=== PATIENT | female | born 1990 | race Caucasian/White ===

== ENCOUNTER → 2019-06-05 16:13 | Outpatient (CLI) | payer OTHER, MEDICAID, SELFPAY ==
--- NOTE | 2019-06-05 16:14 | DI.US.S_ITS ---
PROCEDURE: US ABDOMEN COMPLETE INDICATIONS: ABD PAIN, NAUSEA AND VOMITING X 2 WKS TECHNIQUE: Real-time scanning was performed of the abdominal and retroperitoneal organs, with image documentation. COMPARISON: None. FINDINGS: Liver: Liver is normal in size and homogeneous in echotexture. Gallbladder: Gallbladder is sonographically normal. No gallstones. No gallbladder wall thickening. No pericholecystic fluid. No sonographic Hamm sign. Biliary ducts: Intrahepatic bile ducts are non-dilated. Extrahepatic bile duct caliber measures 3.3 mm. Normal is 6-7 mm or less in diameter, or 10 mm or less post-cholecystectomy. Pancreas: Visualized portions of the pancreas are sonographically normal. Spleen: Spleen is normal in size and homogeneous in echotexture. Incidental note of a small splenule. Kidneys: Kidneys are normal in size and echotexture. Right kidney measures 10.8 cm long; left kidney measures 10.0 cm long. No hydronephrosis or nephrolithiasis. No solid masses. Aorta: Visualized aorta is normal in caliber at less than 3 cm. Iliacs: Proximal common iliac arteries are normal in caliber at less than 2.5 cm. IVC: Intrahepatic inferior vena cava is patent. Miscellaneous: No free abdominal fluid. IMPRESSION: Normal abdominal sonogram. Dictated by: Maria M Purvis MD, PhD on 06/05/2019 at 17:04 Approved by: Maria M Purvis MD, PhD on 06/05/2019 at 17:10
[2019-06-05 16:41] LABS: Add Manual Diff / Slide Review NO; Basophils Absolute Auto 0 /uL (0-100); Basophils Percent Auto 0.5 % (0-2); Eosinophils Absolute Auto 0 /uL (0-450); Eosinophils Percent Auto 0.2 % (2-4); Hematocrit 42.4 % (36-46); Hemoglobin 14.3 g/dL (12.0-16.0); Lymphocytes Absolute Auto 1600 /uL (1100-4500); Lymphocytes Percent Auto 22.5 % (25-40); Mean Corpuscular HGB Conc 33.6 % (30-36); Mean Corpuscular Hemoglobin 31.2 PG (26-34); Mean Corpuscular Volume 92.6 fL (80-100); Monocytes Absolute Auto 400 /uL (0-900); Neutrophils Absolute Auto 5000 /uL (1500-7000); Neutrophils Percent Auto 70.8 % (50-75); Platelet Count 205 X10^3/uL (150-400); Red Blood Cell Count 4.58 X10^6/uL (4.0-5.2); Red Cell Distribution Width 13.5 % (11.6-14.8); White Blood Cell Count 7.1 X10^3/uL (4.5-11.0)
[2019-06-05 17:01] LABS: Alanine Aminotransferase 25 IU/L (9-52); Albumin 4.6 g/dL (3.5-5.0); Albumin Globulin Ratio 1.5 (1.0-2.8); Alkaline Phosphatase 73 U/L (38-126); Aspartate Aminotransferase 28 IU/L (14-36); Bilirubin Total 0.7 mg/dL (0.2-1.3); Blood Urea Nitrogen 12 mg/dL (7-17); Calcium 9.6 mg/dL (8.4-10.2); Carbon Dioxide 27 mmol/L (22-32); Chloride 103 mmol/L (98-107); Estimated Glomerular Filt Rate > 60.0 mL/min (>60); Globulin 3.1 g/dL (1.7-4.1); Glucose 92 mg/dL (70-100); HEMOLYSIS 29 (0-50); Lipase 64 U/L (23-300); Potassium 4.8 mmol/L (3.4-5.1); Sodium 139 mmol/L (137-145); Total Protein 7.7 g/dL (6.3-8.2)
== END ==
PROVIDERS: Visit Provider Physician Assistant
DX: R10.9 Unspecified abdominal pain (principal); R11.2 Nausea with vomiting, unspecified
CPT/HCPCS: 36415; 76700; 80053; 83690; 85025

== ENCOUNTER → 2019-06-13 19:00 | Outpatient (CLI) | payer OTHER, MEDICAID, SELFPAY ==
--- NOTE | 2019-06-13 19:03 | DI.RAD.S_ITS ---
PROCEDURE: XR ANKLE RT MIN 3V INDICATIONS: Right foot pain TECHNIQUE: 3 views of the ankle were acquired. COMPARISON: [facility], , XR FOOT RT MIN 3V, 06/13/2019, 19:03. FINDINGS: Bones: No fractures or dislocations of the ankle. Ankle mortise is normally aligned. No suspicious bony lesions. Soft tissues: No tibiotalar joint effusion. Achilles tendon appears normal. IMPRESSION: No fracture dislocation of the right ankle. Please see separately dictated foot radiographs. Dictated by: Juice Huggins M.D. on 06/13/2019 at 20:48 Approved by: Juice Huggins M.D. on 06/13/2019 at 20:50
--- NOTE | 2019-06-13 19:03 | DI.RAD.S_ITS ---
PROCEDURE: XR FOOT RT MIN 3V INDICATIONS: Right foot pain TECHNIQUE: 3 views of the foot were acquired. COMPARISON: None. FINDINGS: Bones: Spiral fracture of the fifth metatarsal shaft with minimal displacement. Small ossicle adjacent to the lateral cuboid may represent additional fracture versus normal variant. Soft tissues: No tibiotalar joint effusion. Achilles tendon appears normal. IMPRESSION: Spiral fracture of the fifth metatarsal shaft with minimal displacement. Dictated by: Juice Huggins M.D. on 06/13/2019 at 20:50 Approved by: Juice Huggins M.D. on 06/13/2019 at 20:52
== END ==
PROVIDERS: Visit Provider Physician Assistant
DX: S92.351A Displaced fracture of fifth metatarsal bone, right foot, initial encounter for closed fracture (principal)
CPT/HCPCS: 73610; 73630

== ENCOUNTER 2020-05-02 09:09 | Emergency (ER) | payer OTHER, MEDICAID, SELFPAY ==
[2020-05-02 09:28] VITALS: BP 116/73; PULSE 87; RESP 14; TEMP 36.8; O2SAT 98; BMI 24.0
--- NOTE | 2020-05-02 09:32 | DI.RAD.S_ITS ---
PROCEDURE: XR ELBOW LT MIN 3V INDICATIONS: elbow injury 2 weeks ago,still having pain and swelling TECHNIQUE: 3 views of the elbow were acquired. COMPARISON: [facility], CR, XR ELBOW 3+ VIEWS LEFT, 04/15/2020, 17:03. FINDINGS: Bones: No fractures or dislocations. No suspicious bony lesions. Soft tissues: No elbow joint effusion. No suspicious soft tissue calcifications. IMPRESSION: A fracture is not found. Source of persistent pain after trauma 04/15/20 is not seen. Dictated by: Carlos Haywood M.D. on 05/02/2020 at 10:01 Approved by: Carlos Haywood M.D. on 05/02/2020 at 10:02
--- NOTE | 2020-05-02 10:25 | ED.UPPEXIN ---
HPI - Extremity Injury (Upper) General Chief Complaint: Extremity Injury, Upper Stated Complaint: Fell a fews weeks ago on left elbow. Not better Time Seen by Provider: 05/02/20 10:20 Source: patient Mode of arrival: Ambulatory Limitations: no limitations History of Present Illness HPI narrative: Patient is a 30-year-old female who fell on move more rule day injuring her left elbow. She was seen evaluated at that time and had x-rays which were negative. She continues to have pain medial olecranon. 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 She has been taking ibuprofen for pain and has not seemed to help. MD complaint: injury to: left and elbow Onset (ago): week(s) Related Data Previous Rx's Medication Instructions Recorded ondansetron 4 mg disintegrating 4 mg PO Q6-8H PRN #30 tab 06/05/19 tablet hydrocodone-acetaminophen [Troy] 1 tab PO Q6H PRN #10 tab 05/02/20 Allergies Allergy/AdvReac Type Severity Reaction Status Date / Time No Known Drug Allergies Allergy Verified 05/02/20 09:32 Review of Systems Review of Systems Narrative: GENERAL: Denies chills,fever HEENT: Denies throat pain RESPIRATORY: Denies dyspnea, cough, wheezing CARDIOVASCULAR: Denies chest pain, palpitations GASTROINTESTINAL: Denies nausea, vomiting MUSCULOSKELETAL: See HPI SKIN: No rash, no laceration, no pruritus NEUROLOGIC: Denies weakness, dizziness, headache, numbness 8 point review of systems is negative except for those stated above and HPI Patient History Medical History Patient denies medical problems (Acute) Social History Smoking Status: Current every day smoker Smoking Status: Current every day smoker alcohol intake frequency: a few times a week Substance Use Type: marijuana Exam Initial Vital Signs Initial Vital Signs: Vital Signs Temperature 98.2 F 05/02/20 09:28 Pulse Rate 87 05/02/20 09:28 Respiratory Rate 14 05/02/20 09:28 Blood Pressure 116/73 05/02/20 09:28 Pulse Oximetry 98 05/02/20 09:28 GENERAL: Well-appearing, well-nourished and in no acute distress. CARDIOVASCULAR: peripheral pulses in tact, cap refill <2 sec RESPIRATORY: No respiratory distress, speaks in full sentences without difficulty EXTREMITIES: Normal range of motion, no clubbing or edema. Neurovascularly intact. Left elbow did decreased extension but does extend to about 160? of full flexion good pronation and supination neurovascularly intact NEUROLOGICAL: Cranial nerves II through XII grossly intact. Normal gait and speech. SKIN: Warm, dry, no petechiae, no rashes or lesions. Course Orders Ordered: ED Orders 05/02/20 09:32 XR elbow LT min 3V Stat Vital Signs Vital signs: Vital Signs - 8 hr 05/02/20 09:28 Temperature 98.2 F Pulse Rate 87 Respiratory Rate 14 Blood Pressure 116/73 Pulse Oximetry 98 MDM - Extremity Injury (Upper) Imaging Data Extremity x-ray #1: Radiologist's Impression: PROCEDURE: XR ELBOW LT MIN 3V INDICATIONS: elbow injury 2 weeks ago,still having pain and swelling TECHNIQUE: 3 views of the elbow were acquired. COMPARISON: [facility], CR, XR ELBOW 3+ VIEWS LEFT, 04/15/2020, 17:03. FINDINGS: Bones: No fractures or dislocations. No suspicious bony lesions. Soft tissues: No elbow joint effusion. No suspicious soft tissue calcifications. IMPRESSION: A fracture is not found. Source of persistent pain after trauma 04/15/20 is not seen. Dictated by: Carlos aHywood M.D. on 05/02/2020 at 10:01 Discharge Plan Departure Patient Disposition: Home Clinical Impression: Sprain of left elbow Qualifiers: Encounter type: initial encounter Qualified Code(s): S53.402A - Unspecified sprain of left elbow, initial encounter Discharge Date/Time: 05/02/20 10:56 Instructions: DI for Elbow Sprain Activity Restrictions/Additional Instructions: *You have been diagnosed with left elbow sprain *What to do: Use sling as needed be sure to take arm out multiple times a day to prevent for further injury. Ice 20-30 minutes a day. *Continue to take medications as directed Ibuprofen 800 mg every 8 hours if needed for [id number] pain Troy 1 tablet every 6 hours only if needed for severe pain--> sent to [facility] in and [place] *Follow up with your primary care provider in 2-3 days *Return to ER if you should have increased weakness numbness tingling pain or any new, worsening or concerning symptoms CONTROLLED SUBSTANCE DISCHARGE (Narcotoic/benzodiazepine/Flexeril/Phenergan) 1. You have been prescribed narcotic medications, it does have acetaminophen/Tylenol/paracetamol in it so do not take extra Tylenol or Tylenol containing products TRAMADOL DOES NOT CONTAIN TYLENOL 2. Please understand that we cannot provide further refills of narcotics, benzodiazepines or controlled substances through the ED and her pain management will need to be through your provider. 3. While on these medications you cannot drive or operate heavy machinery. 4. You cannot sign legal documents or perform any duties such as this. 5. As long as you're taking opiate pain medications he should also be taking a stool softener such as Colace, Dulcolax, MiraLAX or prune juice, to help avoid constipation. Prescriptions: New hydrocodone-acetaminophen [Troy] 5-325 mg tablet 1 tab PO Q6H PRN (Reason: pain) Qty: 10 RF: 0 No Action ondansetron 4 mg tablet,disintegrating 4 mg PO Q6-8H PRN (Reason: nausea and vomiting) Qty: 30 RF: 0 Referrals: [facility] [Outside]
== END 2020-05-02 10:56 | disposition home or self-care (01) ==
PROVIDERS: Emergency Provider Emergency Medicine
DX: S53.402A Unspecified sprain of left elbow, initial encounter (principal)
CPT/HCPCS: 73080; 99283

== ENCOUNTER → 2021-03-18 12:55 | Outpatient (CLI) | payer OTHER, MEDICAID, SELFPAY | PROVIDERS: Visit Provider Physician Assistant | DX: N89.8 Other specified noninflammatory disorders of vagina (principal) | CPT/HCPCS: 87210 ==